=== PATIENT | female | born 1965 | race Caucasian/White ===

== ENCOUNTER → 2024-02-25 08:22 | Outpatient (REF) | payer BC, SELFPAY | LOC: CPAP 08:22 | PROVIDERS: ATTENDING PHYSICIAN Obstetrics & Gynecology Gynecology | DX: Z01.419 Encounter for gynecological examination (general) (routine) without abnormal findings (principal) | CPT/HCPCS: G0123 ==

== ENCOUNTER → 2024-05-12 06:26 | Outpatient (REF) | payer BC, SELFPAY ==
[2024-05-12 07:38] LABS: % Basophils 0.7 % (0-2); % Eosinophils 3.6 % (0-6); % Immature Granulocytes 0.6 % (0-0.5); % Lymphocytes 27.2 % (20.5-51.1); % Monocytes 5.2 % (1.7-9.3); % Neutrophils 62.7 % (42.2-75.2); Absolute Basophils 0.1 10^3/uL (0-0.2); Absolute Eosinophils 0.4 10^3/uL (0-0.7); Absolute Immature Granulocytes 0.1 10^3/uL (0-0.05); Absolute Lymphocytes 2.7 10^3/uL (1.2-3.4); Absolute Monocytes 0.5 10^3/uL (0.1-0.6); Absolute Neutrophils 6.1 10^3/uL (1.4-6.5); Hematocrit 39.7 % (37.0-47.0); Hemoglobin 13.8 g/dL (12.0-16.0); Mean Corp Hgb Conc. 34.8 g/dL (33.0-37.0); Mean Corpuscular Volume 86.3 fL (81.0-99.0); Mean Platelet Volume 9.1 fL (7.4-10.4); Nucleated Red Blood Cells % 0 %; Platelet Count 231 10^3/uL (130-400); Red Cell Dist. Width 12.4 % (11.5-14.5); White Blood Cell Count 9.8 10^3/uL (4.8-10.8)
[2024-05-12 08:02] LABS: ALT (SGPT) 26 U/L (0-35); AST (SGOT) 26 U/L (14-36); Albumin 4.3 g/dl (3.5-5.0); Alkaline Phosphatase 106 U/L (38-126); Blood Urea Nitrogen 12 mg/dl (7-17); Calcium 9.6 mg/dl (8.4-10.2); Carbon Dioxide 28 mmol/L (22-30); Chloride 103 mmol/L (98-107); Glucose 125 mg/dl (70-99); HDL Cholesterol 43 mg/dl; LDL Cholesterol, Calculated 94 mg/dl; Potassium 4.3 mmol/L (3.5-5.1); Sodium 138 mmol/L (135-145); Total Bilirubin 0.7 mg/dl (0.2-1.3); Total Cholesterol 180 mg/dl (50-199); Triglyceride 218 mg/dl (10-149); Very Low Density Lipoprotein 43 mg/dl (0-30); eGFR > 60.00
[2024-05-12 08:32] LABS: TSH 3.76 uIU/ml (0.47-4.68)
[2024-05-12 09:30] LABS: Glycohemoglobin (HgbA1c) 6.3 % (4.0-5.6)
== END ==
LOC: REG 06:26
PROVIDERS: ATTENDING PHYSICIAN Family Medicine
DX: I10 Essential (primary) hypertension (principal); R73.03 Prediabetes; E78.2 Mixed hyperlipidemia
CPT/HCPCS: 36415; 80053; 80061; 83036; 84443; 85025

== ENCOUNTER → 2024-06-16 09:11 | Outpatient (REF) | payer OTHER, SELFPAY | LOC: MRI 3T 09:11 | PROVIDERS: ATTENDING PHYSICIAN Nurse Practitioner; FAMILY PHYSICIAN Family Medicine | DX: M25.511 Pain in right shoulder (principal) | CPT/HCPCS: 73221 ==

== ENCOUNTER 2024-07-29 11:01 | Outpatient (RCR) | payer OTHER, BC, SELFPAY | END 2024-07-29 23:59 | disposition home or self-care (01) | LOC: RPT 11:01 | PROVIDERS: ATTENDING PHYSICIAN Nurse Practitioner; FAMILY PHYSICIAN Family Medicine | DX: M12.811 Other specific arthropathies, not elsewhere classified, right shoulder (principal); M75.81 Other shoulder lesions, right shoulder | CPT/HCPCS: 97010; 97110; 97162; 97535 ==

== ENCOUNTER → 2024-08-04 12:14 | Outpatient (REF) | payer BC, SELFPAY | LOC: WDC 12:14 | PROVIDERS: ATTENDING PHYSICIAN Obstetrics & Gynecology Gynecology; FAMILY PHYSICIAN Family Medicine | DX: Z12.31 Encounter for screening mammogram for malignant neoplasm of breast (principal) | CPT/HCPCS: 77063; 77067 ==

== ENCOUNTER 2024-08-25 13:00 | Outpatient (RCR) | payer OTHER, BC, SELFPAY | END 2024-08-25 23:59 | disposition home or self-care (01) | LOC: RPT 13:00 | PROVIDERS: ATTENDING PHYSICIAN Nurse Practitioner; FAMILY PHYSICIAN Family Medicine | DX: M12.811 Other specific arthropathies, not elsewhere classified, right shoulder (principal); M75.81 Other shoulder lesions, right shoulder | CPT/HCPCS: 97110 ==

== ENCOUNTER 2024-10-03 21:28 | Observation (INO) | payer BC, SELFPAY ==
[2024-10-03 16:15] VITALS: BP 187/86
[2024-10-03 17:00] LABS: % Basophils 0.5 % (0-2); % Eosinophils 7.8 % (0-6); % Immature Granulocytes 0.3 % (0-0.5); % Lymphocytes 15.8 % (20.5-51.1); % Monocytes 7.2 % (1.7-9.3); % Neutrophils 68.4 % (42.2-75.2); Absolute Basophils 0.1 10^3/uL (0-0.2); Absolute Eosinophils 0.8 10^3/uL (0-0.7); Absolute Lymphocytes 1.5 10^3/uL (1.2-3.4); Absolute Monocytes 0.7 10^3/uL (0.1-0.6); Absolute Neutrophils 6.6 10^3/uL (1.4-6.5); Hematocrit 42.6 % (37.0-47.0); Hemoglobin 14.4 g/dL (12.0-16.0); Mean Corp Hgb Conc. 33.8 g/dL (33.0-37.0); Mean Corpuscular Hgb 29.9 pg (27.0-31.0); Mean Corpuscular Volume 88.6 fL (81.0-99.0); Mean Platelet Volume 8.5 fL (7.4-10.4); Nucleated Red Blood Cells % 0 %; Platelet Count 184 10^3/uL (130-400); Red Blood Cell Count 4.81 10^6/uL (4.20-5.40); Red Cell Dist. Width 12.4 % (11.5-14.5); White Blood Cell Count 9.6 10^3/uL (4.8-10.8)
[2024-10-03 17:13] LABS: COVID-19 Antigen Negative (Negative)
[2024-10-03 17:21] LABS: ALT (SGPT) 24 U/L (0-35); AST (SGOT) 22 U/L (14-36); Albumin 4.3 g/dl (3.5-5.0); Alkaline Phosphatase 125 U/L (38-126); Blood Urea Nitrogen 10 mg/dl (7-17); Calcium 8.9 mg/dl (8.4-10.2); Carbon Dioxide 26 mmol/L (22-30); Chloride 100 mmol/L (98-107); Glucose 119 mg/dl (70-99); Sodium 136 mmol/L (135-145); Total Bilirubin 0.8 mg/dl (0.2-1.3); Total Protein 7.4 g/dl (6.3-8.2); eGFR > 60.00
[2024-10-03 17:32] VITALS: BP 180/84
[2024-10-03 17:36] VITALS: BMI 35.4
--- NOTE | 2024-10-03 17:39 | ED.GENMED ---
History of Present Illness
General
Chief Complaint: Breathing Problem
Source: patient
Exam Limitations: none
Time Seen by Provider: 10/03/24 17:33
Nursing documentation reviewed up to this point in time: agreed with
History of Present Illness
History of Present Illness:
The patient is a pleasant 59-year-old female who reports shortness of breath that has gradually gotten worse over the last 3 to 4 days. Patient reports that she has had a cough and congestion. She denies fever. Patient reports that 1 to 2 years
ago she had a similar episode and attributed it to bronchitis and reports that albuterol helped her symptoms. She reports that this particular episode is worse. She denies chest pain, leg swelling and calf pain. She denies a history of PE and
DVT. She denies recent long travel history. Patient denies sore throat and headache. She denies a history of asthma and smoking.
Past History
Past History
ED Past Medical History: Cancer and HTN
ED Past Surgical History: and Gynecological
Social History
Tobacco: Non-smoker
Alcohol: Other
Drug: None
Personal:
Living: with family
Employment: Employed
Family History
Family History: Other
Review of Systems
Review of Systems
Allergies reviewed?: Yes
All Other Systems: ROS reviewed and negative except as documented in HPI and ROS
Constitutional: Reports no symptoms
EENT: Reports no symptoms
Respiratory: Reports cough and trouble breathing
Cardiac: Reports no symptoms
ABD/GI: Reports no symptoms
: Reports no symptoms
Musculoskeletal: Reports no symptoms
Skin: Reports no symptoms
Endocrine: Reports no symptoms
Hematologic/Lymphatic: Reports no symptoms
Psychiatric: Reports no symptoms
Phy Exam
Physical Exam
Physical Exam:
Physical Exam
General: Patient is tachypneic, audible wheezing, short of breath just with speaking
Neck: supple. no meningeal signs. normal psoterior pharynx
Heart: s1/s2 regular rate and rhythm, no murmur. equal radial pulses.
Lungs: Inspiratory and expiratory wheeze. Tachypneic with speaking
Abdomen: normal bowel sounds. not tender. no CVAT
Neuro: alert and oriented. no focal neurological deficits
Skin: no rash
Psychiatric: well kept. interactive and cooperative
Extremities: no edema. no calf tenderness. negative homans. good distal pulses
Scores
Heart Failure Risk
Heart Failure Risk Score: Not Applicable
Course
Orders/Labs/Results
Orders:
Orders
10/03/24 16:20
Electrocardiogram (*1) Urgent
Reason for Study: Shortness of Breath
EKG- Treatment ONCE
CXR2 [CR Chest - 2 Views ] Urgent
Comment:
Reason For Exam: SOB, cough
10/03/24 16:39
CMP [Comprehensive Metabolic Panel] Urgent
COVID-19 Antigen Urgent
Source: Nasal Swab
Complete Blood Count/With Diff Urgent
Influenza A+B Rapid Molecular Urgent
KATIE Source: Nasal Swab
Specimen Description:
10/03/24 17:39
NT-proBNP Urgent
Comment: ADDON
Troponin I Urgent
10/03/24 17:40
Add On- LAB Urgent
Tests Added?: Pro-BNP
10/03/24 17:44
Add On- LAB Urgent
Tests Added?: BNP
10/03/24 17:47
Dexamethasone Sod Phosphate [Decadron] 10 mg IV NOW STA
10/03/24 17:48
Albuterol Sulfate [Ventolin Nebules] 15 mg INH R NOW STA
10/03/24 19:05
Azithromycin 500 mg IVPB NOW Azithromycin 500 mg/250 ml [Zithromax Infusion] 500 mg in 250 ml IV NOW
CefTRIAXone [Rocephin] 1,000 mg IV NOW STA
Abnormal Lab Results
10/03/24
16:39
Absolute Neuts (auto) 6.6 H 10^3/uL
(1.4-6.5)
Absolute Monos (auto) 0.7 H 10^3/uL
(0.1-0.6)
Absolute Eos (auto) 0.8 H 10^3/uL
(0-0.7)
Lymphocytes % 15.8 L %
(20.5-51.1)
Eosinophils % 7.8 H %
(0-6)
Glucose 119 H mg/dl
(70-99)
10/03/24 16:39
10/03/24 16:39
Vital Signs
Initial and Last Documented VS:
Initial Vital Signs
Temp Pulse Resp BP Pulse Ox
98.3 F 77 24 187/86 97
10/03/24 16:15 10/03/24 16:15 10/03/24 16:15 10/03/24 16:15 10/03/24 16:15
Last Documented Vital Signs
Temp Pulse Resp BP Pulse Ox
98.3 F 84 16 148/95 95
10/03/24 16:15 10/03/24 19:00 10/03/24 19:00 10/03/24 19:00 10/03/24 19:00
MDM/Problems Addressed
Differential Diagnosis Includes:
Pneumonia, acute bronchospasm, CHF
MDM/Problems Addressed:
Patient presents with acute cough and shortness of breath
Chronic conditions affecting care: HTN
Acute Exacerbation and/or Progression of Chronic Illness:
Patient is acutely hypertensive, likely due to feeling short of breath and distressed
Acute Exacerbation and/or Progression of Chronic Illness: HTN
*Radiology
Radiology exam reviewed: preliminary read by ED provider (Increased lung markings bilaterally. Chest x-ray read by me) and radiology read reviewed
*Pulse Oximetry
Patient hypoxic: no
*EKG
Interpreted by ED Provider?: Yes
Interpretation: normal
Comparison EKG: no comparison EKG present
Rate: normal
Rhythm: sinus
[place]: normal axis
Interval: normal interval
QRS Pattern: normal QRS
Ischemia: no ischemia
*Registered Nurse Cardiac Interpretation
Rate: normal
Interpretation: normal
Rhythm: sinus
*Critical Care Note
Total Time (30-74mins, 75-104mins- exclusive of procedures): 35 minutes
comment:
35 minutes critical care given to the patient occluding frequent reassessments of her respiratory effort, reviewing her chest x-ray, blood work and EKG
Data Reviewed
Review of Other/Old Records Reveals: Operative Reports (Operative note reviewed from 2022 when patient underwent a hysterectomy and bilateral oophorectomy due to endometrial cancer)
Source: patient and spouse
Update Note
Update Note:
6:55 PM patient finishing up 1 hour nebulizer. Patient also given IV Decadron. Patient is still tachypneic at rest and diffusely wheezy. I feel patient will need to be admitted for acute bronchospasm and respiratory distress
ED Attending Note
-
Portions of this chart may have been created with voice recognition software.� Occasional wrong word or��sound alike� substitutions may have occurred due to the inherent limitations of voice recognition software.
Discharge Plan
Departure
Patient Disposition: Admit
Date of Disposition: 10/03/24
Time of Disposition: 18:50
Admit to: Med/Surg
Presentation/result/management discussed w/ accepting MD/DO: Hospitalist
Patient with high blood pressure during this ER visit?: Yes
Condition: Fair
Covid-19: Negative COVID-19
Discharge Problem:
Acute respiratory distress, Acute bronchospasm
Prescriptions:
No Action
metoprolol tartrate 100 MG tablet
100 mg PO DAILY
Flintstones Multi-Vit Gummies 200 MCG tablet,chewable
200 mcg PO DAILY
Patient Comments:
chewable
losartan 50 mg Tablet
50 mg PO DAILY
rosuvastatin 10 mg Tablet
10 mg PO QPM
escitalopram oxalate [Lexapro] 5 mg Tablet
5 mg PO DAILY
albuterol sulfate 90 mcg/actuation Hfa Aerosol Inhaler
1 inh INHALATION ONCE PRN (Reason: wheezing)
acetaminophen [Tylenol] 325 mg Capsule
650 mg PO Q4H PRN (Reason: pain)
Referrals:
Anisa Barajas MD [Family Provider] -
Interventions
Interventions:
*Risk Screen - Suicide Last Done: 10/03/24 16:15
*General Assessment Last Done: 10/03/24 16:15
*Neglect/Abuse Screening Last Done: 10/03/24 16:15
ED- Fall Risk Assessment Last Done: 10/03/24 17:33
*ED COVID-19 Vaccine History Last Done: 10/03/24 16:15
ED- Cardiac Assessment Last Done: 10/03/24 17:35
ED- Pulmonary Assessment Last Done: 10/03/24 17:35
Discharge Date and Time
Print Language: SYRIAC
[2024-10-03 18:00] VITALS: BP 136/93
[2024-10-03] MEDS: DECADRON 10 MG IV (18:00)
[2024-10-03] MEDS: VENTOLIN NEBULES 15 MG INH (18:01)
[2024-10-03 18:14] LABS: NT-proBNP 479 pg/ml; Troponin I < 0.012 ng/ml
[2024-10-03 19:00] VITALS: BP 148/95
[2024-10-03] MEDS: ZITHROMAX INFUSION 250 IV (19:22)
[2024-10-03] MEDS: ROCEPHIN 1000 MG IV (19:22)
--- NOTE | 2024-10-03 19:23 | HPS.HSE ---
Family Physician
-
Family Physician: Anisa Barajas
Chief Complaint
-
Shortness of breath
History of Present Illness
This is a 59-year-old female with past medical history of hypertension and hyperlipidemia who presents to the emergency department with approximately 3 to 4 days of increasing shortness of breath and coughing.
Patient said that about 5 days ago it felt like she had a mild viral/flulike illness. She rested for a couple of days. Despite these the patient reported that she started developing a cough that is generally nonproductive. This cough is
associated with severe dyspnea and shortness of breath. She is not having paroxysms of the cough. He does have severe shortness of breath when she coughs. She reports that she does feel like she is unable to lay down to sleep due to shortness of
breath. She denies any known sick contacts. She had no recent travel. Patient denies history of smoking, COPD or asthma. She reported that she had an episode of acute bronchitis about 2 to 3 years ago but has not had recurrence since. She
denies any new exposures to medications. She denies any recent change of living spaces. She has not had fevers or chills at home. Patient has history of hypertension but denies any history of CHF. She denies any recent ankle swelling. She
denies history of GERD.
She used Spear inhaler at home but had no significant improvement so she came to the emergency department.
In the ED she was initially tachypneic but she was satting 95% on room air. Blood pressure was 148/95 and pulse was 84. She had a chest x-ray which was mostly negative except for mild cardiomegaly and mild interstitial edema. ECG showed normal
sinus rhythm at a rate of [address] or T wave changes. Troponin was negative. BNP was 450. COVID test was negative. Influenza was negative. Electrolytes BUN/creatinine were within normal limits. She had CBC that was mostly
unremarkable. She did have elevated eosinophils to 7.8% with elevated absolute eosinophil count of 800.
Medical History
Past Medical History
Past Medical History: Reports Cancer (Endometrial cancer status post surgery), HTN and Hypercholesterolemia
Past Surgical History: Reports and Gynocological (Total abdominal hysterectomy with bilateral salpingo-oophorectomy)
Social History
Tobacco: Non-smoker
Alcohol: Occasional
Drug: None
Personal:
Living: With Family
Employment: Employed
Family History
Family History: Not pertinent
Allergies / Home Medications
Allergies reflects when Allergies were last updated in [facility].
Home Medications with original date entered in [facility]
Allergy/Medication List:
Allergies
Allergy/AdvReac Type Severity Reaction Status Date / Time
No Known Allergies Allergy Verified 04/09/23 11:40
Home Medications
albuterol sulfate 90 mcg/actuation aerosol inhaler 1 inh inhalation R Q6HPRN PRN wheezing 04/05/23
rosuvastatin 10 mg tablet 10 mg PO HS 04/05/23
losartan 100 mg tablet 100 mg PO HS 10/03/24
metoprolol succinate 100 mg tablet,extended release 24 hr 100 mg PO DAILY 10/03/24
naproxen sodium 220 mg tablet (Aleve) 220 mg PO DAILYPRN PRN mild pain 10/03/24
therapeutic multivitamin 1 tab PO DAILY 10/03/24
Review of Systems
-
Constitutional: Reports No Symptoms
EENT: Reports No Symptoms
Respiratory: Reports Cough and Trouble Breathing
Cardiac: Reports No Symptoms
Abdomen/GI: Reports No Symptoms
: Reports No Symptoms
Musculoskeletal: Reports No Symptoms
Skin: Reports No Symptoms
Neurological: Reports No Symptoms
Endocrine: Reports No Symptoms
Hematologic/Lymphatic: Reports No Symptoms
Psych: Reports No Symptoms
Physical Exam
Vital Signs
Vital Signs
Temp Pulse Resp BP Pulse Ox
98.3 F 91 20 148/95 94
10/03/24 16:15 10/03/24 19:15 10/03/24 19:15 10/03/24 19:00 10/03/24 19:15
Physical Exam
General: Well Developed, Well Nourished and Respiratory Distress
HEENT: NormoCephalic, Moist mucous membranes and Atraumatic
Respiratory: Wheezes (coarse wheezes mostly at the base bilaterally)
Cardiac: S1/S2 and Regular Rhythm
Breast: Deferred by me
GI: Soft, Non Tender, Non Distended and Normal Bowel Sounds
Rectal: Deferred by Provider
Genito-urinary: Deferred by me
Musculoskeletal: No Clubbing, No Cyanosis and No Edema
Skin: Warm
Neuro: AO x 3 and Nonfocal/grossly intact
Hematologic/Lymphatic: No Lymphadenopathy
Psych: Calm
Laboratory Results
-
10/03/24 16:39
10/03/24 16:39
Laboratory Results
Total Bilirubin 0.8 mg/dl (0.2-1.3) 10/03/24 16:39
AST 22 U/L (14-36) 10/03/24 16:39
ALT 24 U/L (0-35) 10/03/24 16:39
Alkaline Phosphatase 125 U/L (38-126) 10/03/24 16:39
Troponin I < 0.012 ng/ml 10/03/24 17:39
Data Reviewed
-
Diagnostic Radiology: Image Personally Visualized and interpreted and Report Reviewed by me
Medical Tests (Nuc Med, Echo, EKG etc): Image Personally Visualized and interpreted
Lab Data: Labs Reviewed by me
Old Records: Reviewed
Impression/Plan
-
IMPRESSION:
This is a 59-year-old was had progressive shortness of breath and nonproductive cough for the last 2 days. There is no associated fever or leukocytosis. Chest x-ray shows mild cardiomegaly with mild interstitial edema. BNP is equivocal at 450.
COVID and flu test are negative. On exam she has coarse wheezes at the bases bilaterally without any crackles. She has no peripheral edema. There is no JVD. Labs are mostly unremarkable except for elevated eosinophil count. Suspect acute
bronchitis versus allergic reaction/delayed onset asthma. Although cannot completely rule out congestive heart failure the physical exam and labs are not consistent with the x-ray findings.
PLAN:
1. Bronchitis - Acute bronchitis with possible allergic/asthma component suggestive of asthmatic bronchitis. No prior history of asthma. No smoking history and no history of emphysema/copd
- admit to med surg
- continue with solumedrol 40 q 12
- albuterol q2h prn
- albuterol/ipratropium q 6
- symbicort bid
- continue azithromycin for athmatic/bronchitis
- pulmonary consult.
2. Interstitial edema - Possibly related to bronchitis. BNP of 450 is equivocal. She has chronic hypertenson but on medications. No evidence of vol o/d on exam.
- lasix 20mg iv x 1 and re-evaluate
- echo
- outpatient cardiology referall
- continue metoprolol and losartan
DVT PPX - lovenox sq
Code status - full Code
[2024-10-03 20:05] VITALS: BP 140/54
[2024-10-03] MEDS: LASIX 20 MG IV (20:38)
[2024-10-03 21:00] VITALS: BP 155/78
[2024-10-03] MEDS: DUONEB 3 ML INH (23:28)
[2024-10-03] MEDS: SYMBICORT 80/4.5 MCG INHALER 2 PUFF INH (23:28)
[2024-10-04 00:05] VITALS: BMI 35.4
[2024-10-04] MEDS: COZAAR 100 MG PO ×2 (00:26→23:08)
[2024-10-04] MEDS: CRESTOR 10 MG PO ×2 (00:30→23:08)
[2024-10-04 06:33] LABS: Hematocrit 43.2 % (37.0-47.0); Hemoglobin 14.6 g/dL (12.0-16.0); Mean Corp Hgb Conc. 33.8 g/dL (33.0-37.0); Mean Corpuscular Hgb 30.1 pg (27.0-31.0); Mean Corpuscular Volume 89.1 fL (81.0-99.0); Mean Platelet Volume 8.9 fL (7.4-10.4); Platelet Count 213 10^3/uL (130-400); Red Blood Cell Count 4.85 10^6/uL (4.20-5.40); Red Cell Dist. Width 12.3 % (11.5-14.5); White Blood Cell Count 8.6 10^3/uL (4.8-10.8)
[2024-10-04 06:59] LABS: Blood Urea Nitrogen 14 mg/dl (7-17); Calcium 8.8 mg/dl (8.4-10.2); Carbon Dioxide 25 mmol/L (22-30); Chloride 97 mmol/L (98-107); Estimated Creatinine Clearance 105 ml/min; Glucose 255 mg/dl (70-99); Potassium 3.5 mmol/L (3.5-5.1); Sodium 138 mmol/L (135-145); eGFR > 60.00
[2024-10-04] MEDS: DUONEB 3 ML INH ×4 (07:44→19:51)
[2024-10-04] MEDS: SYMBICORT 80/4.5 MCG INHALER 2 PUFF INH (07:44)
[2024-10-04] MEDS: SOLU-MEDROL PF 40 MG IV (08:00)
[2024-10-04] MEDS: TOPROL XL 100 MG PO (08:03)
[2024-10-04 11:18] VITALS: BP 152/69
[2024-10-04] MEDS: FLEXERIL 5 MG PO ×2 (12:35→20:36)
[2024-10-04] MEDS: TORADOL 10 MG IV (14:15)
--- NOTE | 2024-10-04 14:48 | W.PN.HOSP.TC ---
Today's Communication/Plan
-
IV steroids, wean as tolerated
Incentive spirometer and Acapella ordered
MDI/DuoNebs
2D echocardiogram
Cyclobenzaprine 5 mg every 6 as needed
Assessment / Plan
Assessment / Plan
Acute bronchitis with no no history of asthma nor COPD, lifelong non-smoker. Has a previous history of bronchitis few years previous.
-Continue IV steroids
-Continue DuoNebs
-Continue MDIs
-Continue azithromycin
-Pulmonary consult
Interstitial edema with with a BNP of 450 which could be lower as she is obese
--Suspect this is more related to acute bronchitis rather than heart failure
-S/p 1 dose IV diuretics
-Does not examine to be significantly volume overloaded on exam
-2D echocardiogram has been ordered pending
-If noted reduced EF or wall motion abnormalities on 2D echocardiogram then would consult cardiology
Back pain/sciatica versus muscle spasm
-Cyclobenzaprine 5 mg every 6 as needed
Anticipated Discharge: 24 - 48 hours
Subjective/Interval History
-
Date of Service: October 04, 2024
Seen and examined. States feeling better. However is having severe lower back/sciatic pain that was just exacerbated by movement and improved with laying flat. Eating doubtful that I provided her with did help a little bit. Will order a
cyclobenzaprine 5 mg.
Objective Data
-
Labs:
Laboratory Results
10/04/24
05:46
WBC 8.6
Hgb 14.6
Hct 43.2
Plt Count 213
Sodium 138
Potassium 3.5
Chloride 97 L
Carbon Dioxide 25
BUN 14
Creatinine 0.6
Glucose 255 H
Calcium 8.8
Vital Signs:
Vital Signs
Temp Pulse Resp BP Pulse Ox
97.8 F 91 18 152/69 93
10/04/24 11:18 10/04/24 11:32 10/04/24 11:32 10/04/24 11:18 10/04/24 11:32
I&O
10/03/24 10/04/24 10/05/24
06:59 06:59 06:59
Intake Total 480 / 480 480 / 480
Balance 480 / 480 480 / 480
Physical Exam
-
General: Well Developed and Well Nourished
HEENT: Normocephalic and Atraumatic
Respiratory: Wheezes (Throughout all lung mixon)
Cardiac: Regular Rhythm and S1/S2
GI: Soft, Nontender and Nondistended
Musculoskeletal: No Clubbing
Skin: Warm and Dry
Neuro: Awake, Alert, Oriented and AO x 3
Psych: Calm
[2024-10-04 15:58] VITALS: BP 165/85; BMI 39.3
[2024-10-04] MEDS: PERCOCET 5/325 1 TABLET PO (17:02)
[2024-10-04] MEDS: PROTONIX 40 MG PO (17:02)
--- NOTE | 2024-10-04 17:13 | PTCARENOTE ---
Arrived to floor and pulled over. Patient ambulatory at baseline, however report R hip/R knee pain. Patient reports she believes pain is from receiving steroids. Pain management per orders see NOV. Call peres within reach. Oriented to room.
[2024-10-04] MEDS: ZITHROMAX INFUSION 250 IV (17:34)
[2024-10-04] MEDS: LOVENOX 40 MG SC (17:35)
--- NOTE | 2024-10-04 17:47 | CON.PUL ---
Consultation
Consultation Request
Date/Time Consultation Requested: 10/04/2024
Date/Time Consultation Performed: 10/04/2024
Requesting Provider: Dr. Leyva
Performing Provider: Dr. Hank Murphy
Reason for Consultation: Respiratory insufficiency /acute bronchitis
Medical History
-
History of Present Illness:
59-year-old woman with past medical history significant for hypertension, hyperlipidemia who presented to the emergency department complaining of 3 to 4 days of increased shortness of breath and coughing.
Reports mild flulike symptoms the last few days. Cough was progressive and nonproductive. Denied any hemoptysis.
Reports shortness of breath with cough paroxysms.
Patient does not have any previous history of pulmonary problems.
In the emergency room patient was tachypneic but without oxygen requirements. Chest x-ray with possible mild interstitial edema.
It is noted in the emergency room the patient had peripheral eosinophilia.
Social History
Tobacco: Non-smoker
Alcohol: Occasional
Drug: None
Personal:
Living: With Family
Employment: Employed
Family History
Family History: Reviewed & Not Pertinent
Allergies / Home Medications
Allergies
Allergy/AdvReac Type Severity Reaction Status Date / Time
No Known Allergies Allergy Verified 04/09/23 11:40
Home Medications
�Medication �Instructions �Recorded �Confirmed �Last Taken �Type
albuterol sulfate 90 mcg/actuation 1 inh inhalation R Q6HPRN PRN 04/05/23 10/03/24 10/03/24 History
aerosol inhaler wheezing
rosuvastatin 10 mg tablet 10 mg PO HS High Cholesterol 04/05/23 10/03/24 10/02/24 History
losartan 100 mg tablet 100 mg PO HS Blood Pressure 10/03/24 10/03/24 10/02/24 History
metoprolol succinate 100 mg 100 mg PO DAILY Blood Pressure 10/03/24 10/03/24 10/03/24 History
tablet,extended release 24 hr
naproxen sodium 220 mg tablet 220 mg PO DAILYPRN PRN mild pain 10/03/24 10/03/24 10/02/24 History
(Aleve)
therapeutic multivitamin 1 tab PO DAILY Supplement 10/03/24 10/03/24 10/03/24 History
Review of Systems
-
History Source: Patient
All other systems: Negative unless noted
Vitals / Labs / Diagnostic Testing
Vital Signs
Temp Pulse Resp BP Pulse Ox
97.8 F 92 16 165/85 98
10/04/24 15:58 10/04/24 16:02 10/04/24 16:02 10/04/24 15:58 10/04/24 16:10
Lab Data
10/04/24 05:46
10/04/24 05:46
Microbiology
10/03/24 16:39 Nasal Swab Influenza Types A & B ([facility]ISABEL) - Final
Negative for Influenza A & B, NAAT
Negative results must be combined with clinical observations
and patient history.
Nucleic Acid Amplification test (NAAT)performed on the
[employer] platform.
Diagnostic Testing:
Physical Exam
-
HEENT: Normocephalic
Respiratory: Wheeze (mild expiratory) and Non-Labored Respirations
GI: Soft and Non Distended
Neurology: Awake and Alert
Skin: Warm
General: Other (Slightly uncomfortable due to left lower back/hip pain) and Other (Able to speak in full sentences)
Assessment
-
59-year-old woman admitted with flulike symptoms, worsening cough and shortness of breath. Found to be bronchospastic in the emergency room admitted for acute bronchitis/asthmatic bronchitis-we were consulted on 10/04/2024 for evaluation.
Acute bronchitis: Bronchospasm/severe cough paroxysms-asthmatic bronchitis
Peripheral eosinophilia suggest allergies-denies prior asthma history.
Chest x-ray: No acute infiltrate. Mild increased interstitial markings
Normal proBNP/negative troponin
Negative COVID
Negative influenza
Conditions present prior admission:
Hypertension
Hypercholesterolemia
History of total abdominal hysterectomy with bilateral salpingo-oophorectomy
[place]
Assessment and plan:
Agree with current therapy, likely viral tracheobronchitis/asthmatic bronchitis
Patient feels better
Her main complaint is lower left back pain. No lower extremity edema. She is uncomfortable from that but reports improvement of pulmonary symptoms.
Cannot rule out underlying asthma given peripheral eosinophilia
Agree with IV corticosteroids for now-she would like to hold off p.m. IV steroids. Will transition to Pulmicort nebulized twice a day.
Decrease dexamethasone to once a day.
DuoNebs every 6 hours
Unclear whether this patient can perform inhaler technique-upon discharge when improved can be discharged on ICS/LABA-hold inhalers for now.
Okay to give short course of azithromycin for 5 days for bronchitis-transition to oral antibiotics tomorrow.
Will continue to follow-up with likely will require outpatient pulmonary follow-up for further evaluation.
-
Chest x-ray with mild interstitial changes bilaterally: Possibly bronchial thickening-doubt pulmonary edema.
proBNP is normal
No prior history of heart failure
Diuresis was given per primary team. Will defer.
Echocardiogram to be obtained
Left lower back/hip pain management per primary team.
On exam there is no evidence for lower extremity edema
Pain appears to be musculoskeletal and started while she was in the ED
Heating pad will be ordered
DVT prophylaxis with low
-
Will follow
Information will left in the chart for follow-up after discharge.
[2024-10-04] MEDS: PULMICORT 0.5 MG INH (19:51)
[2024-10-04 23:58] VITALS: BP 161/78
[2024-10-05 07:40] VITALS: BP 175/75
[2024-10-05] MEDS: PULMICORT 0.5 MG INH (07:47)
[2024-10-05] MEDS: DUONEB 3 ML INH ×2 (07:47→11:33)
[2024-10-05] MEDS: TOPROL XL 100 MG PO (07:48)
--- NOTE | 2024-10-05 08:39 | W.PN.HOSP.TC ---
Today's Communication/Plan
-
Patient can get echo done in the hospital today and then can be discharged in the afternoon if she is still feeling better.
Assessment / Plan
Assessment / Plan
Assessment:
59-year-old female with past medical history of hypertension and hyperlipidemia who presents to the emergency department with approximately 3 to 4 days of increasing shortness of breath and coughing. Patient recalled feeling like she had a mild
viral/flulike illness. She rested for a couple of days. Despite these the patient reported that she started developing a cough that is generally nonproductive. This cough is associated with severe dyspnea and shortness of breath. Patient was
found to have Acute Bronchitis due to viral tracheobronchitis/asthmatic bronchitis and was continued on IV steroids, Duonebs, MDIs, Azithromycin, and Pulmonolgy was consulted.
Plan:
#Acute bronchitis with no no history of asthma nor COPD, lifelong non-smoker. Has a previous history of bronchitis few years previous.
-Pulmonology consulted, input appreciated
-Continue IV steroids- will transition to pulmicort nebulized BID as per pulmonary
-Continue DuoNebs q6
-Continue MDIs
-Continue azithromycin 5 days ->IV to PO meds today
-Follow outpatient Pulmonary
#Interstitial edema with with a BNP of 450 which could be lower as she is obese
-Most likely in relation to acute bronchitis rather than heart failure
-S/p 1 dose IV diuretics
-Does not examine to be significantly volume overloaded on exam
-Awaiting Echocardiogram results
-If noted reduced EF or wall motion abnormalities on 2D echocardiogram then would consult cardiology
#Left lower Back pain/sciatica versus muscle spasm
-Cyclobenzaprine 5 mg every 6 as needed
-Flexeril and Oxycodone prn helped to relieve the pain
-Resolved
DVT Prophylaxis: Lovenox
Anticipated Discharge: 24 - 48 hours
Anticipated Discharge: Today
Subjective/Interval History
-
Date of Service: October 05, 2024
Patient says that her radiating back pain has subsided and she is very anxious about going back home today. Says she is feeling much better and her breathing is also much improved from before.
Objective Data
-
Vital Signs:
Vital Signs
Temp Pulse Resp BP Pulse Ox
97.6 F 64 18 172/75 94
10/05/24 07:40 10/05/24 07:51 10/05/24 07:51 10/05/24 07:48 10/05/24 07:51
I&O
10/04/24 10/05/24 10/06/24
06:59 06:59 06:59
Intake Total 480 / 480 720 / 720
Balance 480 / 480 720 / 720
Review of Systems
-
History Source: Patient
Constitutional: Denies Fatigue or Sleep Disturbance
EENT: Reports No Symptoms Reported
Respiratory: Reports Cough and Wheezing; Denies Trouble Breathing
Cardiac: Denies Chest Pain, Diaphoresis or Palpitations
Abdomen/GI: Denies Abdominal Pain, Nausea or Vomiting
Genitourinary: Reports No Symptoms
Musculoskeletal: Denies Joint Pain or Muscle Pain
Skin: Reports No Symptoms
Neuro: Denies Headache, Weakness or Lightheadedness
Endocrine: Reports No Symptoms
Hematologic / Lymphatic: Reports No Symptoms
Allergy / Immunology: Reports No Symptoms
Physical Exam
-
General: Well Developed, Well Nourished, No Apparent Distress and Comfortable
HEENT: Normocephalic, Atraumatic and Moist Mucous Membranes
Respiratory: Wheezes and Non Labored Respirations
Cardiac: Regular Rhythm and S1/S2
GI: Soft, Nontender, Nondistended and Normal Bowel Sounds
Musculoskeletal: No Clubbing, No Cyanosis and No Edema
Skin: Warm and Dry
Neuro: Awake, Alert, Oriented, AO x 3 and No Motor Deficits
Psych: Calm
Data Reviewed
-
Labs: Labs Reviewed by me, Discussed with Physician, Discussed with Nurse and Discussed with Patient
--- NOTE | 2024-10-05 11:14 | W.PN.PUL.V3 ---
Today's Communication / Plan
-
.
Wean oxygen.
Increase activity.
Prednisone taper.
Finite course of antibiotics.
Outpatient pulmonary follow-up
Assessment
-
59-year-old woman admitted with flulike symptoms, worsening cough and shortness of breath. Found to be bronchospastic in the emergency room admitted for acute bronchitis/asthmatic bronchitis-we were consulted on 10/04/2024 for evaluation.
Acute bronchitis: Bronchospasm/severe cough paroxysms-asthmatic bronchitis
Peripheral eosinophilia suggest allergies-denies prior asthma history.
Chest x-ray: No acute infiltrate. Mild increased interstitial markings
Normal proBNP/negative troponin
Negative COVID
Negative influenza
Conditions present prior admission:
Hypertension
Hypercholesterolemia
History of total abdominal hysterectomy with bilateral salpingo-oophorectomy
[place]
Assessment and plan:
Respiratory status improved.
Supplemental options weaned to room air.
Check rest and exercise oximetry.
Aspiration percussions.
Changed to prednisone with slow taper.
Nebulizers-budesonide and DuoNeb's.
Mucolytic.
Antitussives as needed.
Antibiotics-azithromycin for a total of 5 days.
Echocardiogram 10/05/24-year 55-60%, normal diastolic function, mild aortic regurgitation
DVT prophylaxis -on Lovenox.
Nutrition
Early mobilization.
Stable for discharge-prednisone taper, albuterol, finite course of azithromycin and maintenance inhaler such as Symbicort 160/4.5, or Trelogy/ Breztri if covered
Outpatient pulmonary follow-up.-If difficult to control with repetitive prednisone tapers may benefit from Biologics, especially in light of significant eosinophilia
Subjective Data
-
Date of Service:
Date of Service: October 05, 2024
Chief Complaint: Pulmonary Follow Up and Dyspnea Follow Up
Subjective:
Feels much better, no complaints shortness breath, wheezing improved, less dyspnea exertion, no chest pain, productive cough
Review of Systems
General: Other ( for HPI)
Objective Data
Data Reviewed
Vital Signs / I&O:
Vital Signs
Temp Pulse Resp BP Pulse Ox
97.6 F 64 18 172/75 94
10/05/24 07:40 10/05/24 07:51 10/05/24 07:51 10/05/24 07:48 10/05/24 11:01
Intake and Output
10/04/24 10/05/24 10/06/24
06:59 06:59 06:59
Intake Total 480 / 480 720 / 720 180 / 180
Balance 480 / 480 720 / 720 180 / 180
SaO2: 94
Nasal Cannula flow liters per minute: 2
Physical Exam
General: Respiratory Distress (n) and Comfortable
HEENT: Normocephalic and Moist Mucous Membranes
Cardiovascular: Regular Rhythm
Respiratory: Wheeze ( few forced expiratory), Crackles (n), Rhonchi (n), Non-Labored Respirations, Accessory Resp Muscle Use (n) and Stridor (n)
GI: Soft, Non Distended and Non Tender
Neurology: Awake and No Motor Deficits
Skin: Warm, Good Color, Cyanosis (n), Jaundice (n) and Rash
Labs/Micro/Reports
Lab Data
10/04/24 05:46
10/04/24 05:46
Microbiology
10/03/24 16:39 Nasal Swab Influenza Types A & B ([facility]IS[facility]) - Final
Negative for Influenza A & B, NAAT
Negative results must be combined with clinical observations
and patient history.
Nucleic Acid Amplification test (NAAT)performed on the
[employer] platform.
--- NOTE | 2024-10-05 12:57 | W.PN.UPDATE ---
Update Note
Progress Note Update
I saw and evaluated the patient. I reviewed the resident�s note and agree with findings and plan as documented in the resident�s note.
Currently denies shortness of breath.
Gen: NAD, AAOx3.
Eyes: EOMI, PERRLA, no scleral icterus.
Neck: supple.
CV: RRR, +S1/S2, no m/r/g.
Resp: faint expiratory wheezes
Abd: +BS, soft, NT, ND
Skin: No rashes.
Neuro: CN 2-12 intact, non-focal.
Psych: Normal mood and affect.
CXR:
1. Mild cardiomegaly.
2. Mild interstitial cardiogenic pulmonary edema.
3. No radiographic evidence for pneumonia.
Echo: Normal left ventricular size and systolic function. Mild concentric left
ventricular hypertrophy. No regional wall motion abnormalities are seen. LV
ejection fraction is 55-60% by Mcmanus's method of discs. Normal diastolic
function.
Trileaflet aortic valve. Aortic sclerosis without stenosis. Mild aortic
regurgitation.
Acute bronchitis:
-no h/o asthma/COPD, lifelong non-smoker. Has a previous history of bronchitis few years ago.
-received IV steroids, transition to quick prednisone taper on d/c
-pulm saw in c/s
-currently not tachypneic and saturating well on RA
Interstitial edema:
-proBNP of 450 is likely falsely elevated due to morbid obesity
-s/p 1 dose IV diuretics
-echo above
-currently no diagnosis of acute/decompensate heart failur
Back pain/sciatica versus muscle spasm:
-Cyclobenzaprine 5 mg every 6 as needed
Morbid obesity due to excess calories
Medically cleared for discharge. Case management aware.
Total time spent on d/c = 34 min. This included today's physical exam, progress note, review of laboratory and diagnostic data, preparation of discharge documents and prescriptions, and discussions about the pt's hospital course and discharge plan
with the patient and other medical front desk specialist involved in the patient's care.
--- NOTE | 2024-10-05 13:07 | CM ---
CM met with Terri at bedside to complete IA. Outpatient Observation notice reviewed; Terri signed the form and was provided with a copy.
Terri was admitted with shortness of breath; feeling better and looking forward to returning home.
She lives with her in a 2 story home with 2 entry steps. Terri has been (I) amb and adls, works full time staff interpreter.
Plan: Discharge to home with no needs. Pt's to provide transport home at discharge which is anticipated today.
PCP: Anisa Barajas
Pharmacy: [facility] in [place] ([employer])
[2024-10-05 13:49] VITALS: BP 156/67
--- NOTE | 2024-10-05 13:49 | W.DCSUMMARY ---
Discharge Summary
Discharge Data
Date of Admission: 10/03/24
Date of Discharge: 10/05/24
-
Pending Results: No
Hospital Course
Discharging Physician : Dr. Genaro Walls, Dr. Buck Carlisle
Disposition : Home
Primary care physician : Dr. Anisa Barajas
Principal Discharge diagnosis : Acute bronchitis with wheezing
Chronic Discharge diagnosis : Hypertension, Hypercholesterolemia, Endometrial Cancer
Hospital Course : 59 year old female with a past medical history of hypertension and hyperlipidemia came to the [facility] ED on 10/03/2024 with a 3-4 day history of increased shortness of breath and coughing. In the ED she was initially
tachypneic but her oxygen saturation was at 95%. Patient had no associated fever or leukocytosis and the Chest X-ray showed mild cardiomegaly with mild interstitial edema. Labs were unremarkable except for an elevated eosinophil level. She was
suspected to have acute bronchitis versus allergic reaction/delayed onset asthma. Patient was admitted to the hospital and started on various respiratory therapies to help her breathing. Patient was started on IV steroids as well but then developed
left sided back pain that radiated down to her knee. Patient was in much pain for several hours and asked for steroid treatment to stop as she attributed the pain to the steroids. Her pain subsided shortly after stopping the IV steroids. Patient's
symptoms seem to have improved but she still had some wheezing. She underwent an echocardiogram to rule out CHF and was discharged from the hospital as she was medically cleared. She will be following up with Pulmonology in an outpatient setting.
Important imaging findings :
CR Chest - 2 Views
1. Mild cardiomegaly.
2. Mild interstitial cardiogenic pulmonary edema.
3. No radiographic evidence for pneumonia.
Echocardiogram
Normal left ventricular size and systolic function. Mild concentric left
ventricular hypertrophy. No regional wall motion abnormalities are seen. LV
ejection fraction is 55-60% by Mcmanus's method of discs. Normal diastolic
function.
Trileaflet aortic valve. Aortic sclerosis without stenosis. Mild aortic
regurgitation.
Discharge Plan
-
Patient Disposition: Home (Routine Discharge)
Discharge Diagnosis/Procedures: Acute bronchitis with wheezing
Condition: Good
Diet: Low Sodium
Activity: No restrictions
Driving Restrictions: As prior to admission
Bathing Restrictions: None
Referrals:
Anisa Barajas MD [Family Provider] - in less than 1 week
Hank Dobson MD [Active] - in two to three weeks (May see [facility])
Additional Discharge Medication Instructions: Take Azithromycin
Prescriptions:
New
cyclobenzaprine 5 mg tablet
5 mg PO TID PRN (Reason: muscle spasm) Qty: 10 0RF
prednisone 10 mg tablet
10 mg PO DIRECTED Qty: 10 0RF
Rx Instructions:
Taper: 40mg daily x 1 day, 30mg daily x 1 day, 20mg daily x 1 day, 10mg daily x 1 day
azithromycin 500 mg tablet
500 mg PO DAILY 4 Days Qty: 4 0RF
budesonide-formoterol [Symbicort] 160-4.5 mcg/actuation HFA aerosol inhaler
1 puff inhalation ONCE Qty: 10.2 0RF
Continued
rosuvastatin 10 mg Tablet
10 mg PO HS
albuterol sulfate 90 mcg/actuation Hfa Aerosol Inhaler
1 inh INHALATION R Q6HPRN PRN (Reason: wheezing)
therapeutic multivitamin Tablet
1 tab PO DAILY
losartan 100 mg Tablet
100 mg PO HS
metoprolol succinate 100 mg Tablet Extended Release 24 Hr
100 mg PO DAILY
naproxen sodium [Aleve] 220 mg Tablet
220 mg PO DAILYPRN PRN (Reason: mild pain)
Discharge Orders:
Discharge Patient (As Directed); Ordered 10/05/24
Ordered By: Genaro Walls
Discharge Date and Time
Print Language: HEBREW
== END 2024-10-05 14:27 | disposition home or self-care (01) ==
LOC: 4 EAST ACU 21:28
PROVIDERS: Emergency Medicine; ADMITTING PHYSICIAN Internal Medicine; ATTENDING PHYSICIAN Internal Medicine; CONSULT PHYSICIAN Internal Medicine Critical Care Medicine; EMERGENCY PHYSICIAN Emergency Medicine; FAMILY PHYSICIAN Family Medicine
DX: J20.8 Acute bronchitis due to other specified organisms (principal); R05.9 Cough, unspecified; R09.81 Nasal congestion; I11.0 Hypertensive heart disease with heart failure; J81.1 Chronic pulmonary edema; D72.10 Eosinophilia, unspecified; M54.50 Low back pain, unspecified; E78.00 Pure hypercholesterolemia, unspecified; I70.0 Atherosclerosis of aorta; E66.01 Morbid (severe) obesity due to excess calories; R06.82 Tachypnea, not elsewhere classified; Z11.52 Encounter for screening for COVID-19; Z85.42 Personal history of malignant neoplasm of other parts of uterus; Z90.722 Acquired absence of ovaries, bilateral; Z90.710 Acquired absence of both cervix and uterus; Z79.1 Long term (current) use of non-steroidal anti-inflammatories (NSAID); Z68.39 Body mass index [BMI] 39.0-39.9, adult
CPT/HCPCS: 71046; 80048; 80053; 83735; 83880; 84484; 85025; 85027; 87502; 87811; 93005; 93306; 94640; 96365; 96375; 99291; G0378

== ENCOUNTER → 2024-12-25 07:04 | Outpatient (REF) | payer BC, SELFPAY | LOC: RAD 07:04 | PROVIDERS: ATTENDING PHYSICIAN Obstetrics & Gynecology Gynecologic Oncology; FAMILY PHYSICIAN Family Medicine | DX: C54.1 Malignant neoplasm of endometrium (principal) | CPT/HCPCS: 71260; 74177; Q9967 ==

== ENCOUNTER → 2025-04-06 13:26 | Outpatient (REF) | payer BC, SELFPAY ==
[2025-04-16 10:47] LABS: HPV, High Risk Not Detected; HPV, High Risk Source Vaginal
== END ==
LOC: CPAP 13:26
PROVIDERS: ATTENDING PHYSICIAN Obstetrics & Gynecology Gynecology
DX: C54.1 Malignant neoplasm of endometrium (principal); Z01.419 Encounter for gynecological examination (general) (routine) without abnormal findings
CPT/HCPCS: 87624

== ENCOUNTER → 2025-05-25 08:37 | Outpatient (REF) | payer BC, SELFPAY ==
[2025-05-25 09:36] LABS: Hematocrit 39.8 % (37.0-47.0); Hemoglobin 13.2 g/dL (12.0-16.0); Mean Corp Hgb Conc. 33.2 g/dL (33.0-37.0); Mean Corpuscular Volume 90.7 fL (81.0-99.0); Nucleated Red Blood Cells % 0 %; Platelet Count 214 10^3/uL (130-400); Red Cell Dist. Width 12.9 % (11.5-14.5)
[2025-05-25 09:58] LABS: ALT (SGPT) 21 U/L (0-35); AST (SGOT) 19 U/L (14-36); Albumin 4.3 g/dl (3.5-5.0); Alkaline Phosphatase 106 U/L (38-126); Blood Urea Nitrogen 11 mg/dl (7-17); Calcium 8.8 mg/dl (8.4-10.2); Carbon Dioxide 29 mmol/L (22-30); Chloride 104 mmol/L (98-107); Glucose 108 mg/dl (70-99); HDL Cholesterol 48 mg/dl; LDL Cholesterol, Calculated 89 mg/dl; Potassium 4.3 mmol/L (3.5-5.1); Sodium 139 mmol/L (135-145); Total Protein 7.0 g/dl (6.3-8.2); Very Low Density Lipoprotein 37 mg/dl (0-30); eGFR > 60.00
[2025-05-25 10:29] LABS: TSH 2.75 uIU/ml (0.47-4.68)
[2025-05-25 10:33] LABS: Glycohemoglobin (HgbA1c) 5.9 % (4.0-5.6)
== END ==
LOC: REG 08:37
PROVIDERS: ATTENDING PHYSICIAN Family Medicine
DX: Z00.00 Encounter for general adult medical examination without abnormal findings (principal); R73.03 Prediabetes; R73.02 Impaired glucose tolerance (oral); E78.5 Hyperlipidemia, unspecified
CPT/HCPCS: 36415; 80053; 80061; 83036; 84443; 85025

== ENCOUNTER → 2025-08-05 13:32 | Outpatient (REF) | payer BC, SELFPAY | LOC: WDC 13:32 | PROVIDERS: ATTENDING PHYSICIAN Obstetrics & Gynecology Gynecology; FAMILY PHYSICIAN Family Medicine | DX: Z12.39 Encounter for other screening for malignant neoplasm of breast (principal); Z12.31 Encounter for screening mammogram for malignant neoplasm of breast | CPT/HCPCS: 77063; 77067 ==